=== PATIENT | female | born 1940 | race Caucasian/White ===

== ENCOUNTER → 2017-01-16 | Outpatient (REF) | payer MEDICARE ==
[2017-01-16 10:50] LABS: ALBUMIN 4.1 GM/DL (3.2-5.2); ALBUMIN/GLOBULIN RATIO 1.14 (1.00-1.93); BILIRUBIN,TOTAL 0.4 MG/DL (0.2-1.0); CREATININE FOR GFR 1.01 MG/DL (0.55-1.02); GLOMERULAR FILTRATION RATE 56.9 (>39); POTASSIUM SERUM 4.1 MEQ/L (3.5-5.1); TOTAL PROTEIN 7.7 GM/DL (6.4-8.2)
== END ==
LOC: M LABDRAW1 10:14
PROVIDERS: ATTEND Nurse Practitioner Adult Health
DX: I10 Essential (primary) hypertension (principal); E78.4 Other hyperlipidemia

== ENCOUNTER → 2017-01-24 | Outpatient (CLI) | payer MEDICARE ==
--- NOTE | 2017-01-24 10:15 | REPMRS ---
Patient History The patient states she had a clinical breast exam in Patient is postmenopausal. Family history of breast cancer in paternal aunt at age 50 or over, ovarian cancer in maternal grandmother at age 50 or over, breast cancer in maternal cousin under age 50, and ovarian cancer in maternal cousin under age 50. Digital Woman Screen Mammo: January 24, 2017 - Exam #: [id number] Bilateral CC and MLO view(s) were taken. Technologist: Krystal De Leon, Technologist Prior study comparison: January 27, 2016, digital woman screen mammo performed at [facility]. January 21, 2015, digital woman screen mammo performed at [facility]. January 20, 2014, digital woman screen mammo performed at [facility]. FINDINGS: There are scattered fibroglandular densities. There has been no change in the appearance of the mammogram from the prior studies. There is a mild amount of scattered fibroglandular density which is fairly symmetric. There is no interval development of dominant mass, architectural distortion, or clustered microcalcification suggestive of malignancy. ASSESSMENT: BI-RADS/ACR category 1 mammogram. Negative. Recommendation Routine screening mammogram in 1 year (for women over age 40). This mammogram was interpreted with the aid of an FDA-approved computer-aided dectection system. Electronically Signed By: Ryan Bailey MD 01/24/17 1015
== END ==
LOC: M WHC 07:57
PROVIDERS: ATTEND Nurse Practitioner Women's Health
DX: Z01.419 Encounter for gynecological examination (general) (routine) without abnormal findings (principal); Z12.31 Encounter for screening mammogram for malignant neoplasm of breast; Z78.0 Asymptomatic menopausal state; Z80.41 Family history of malignant neoplasm of ovary
CPT/HCPCS: G0101; G0202

== ENCOUNTER → 2017-02-21 | Outpatient (CLI) | payer MEDICARE ==
--- NOTE | 2017-02-21 14:16 | REP ---
Whole body radionuclide bone scan: The patient complains of low back pain right knee pain. The patient reportedly had an hemangioma questionably diagnosed in a lumbar spine vertebral body on a previous lumbar spine plain film study dated 01/16 2017. Upon review of this plain film study there is questionably an hemangioma in the L2 vertebral body. On the study today whole-body scanning is performed. Additionally, oblique views of the ribs and oblique views of the pelvis are performed in lateral views of the calvarium and knees are performed. There is no unusual uptake in the calvarium. There is a degenerative pattern of uptake in the shoulders. There is no unusual rib uptake. There is faintly visible uptake in two mid-thoracic vertebral bodies. Upon review of the PA and lateral plain film study of the chest dated 04/17/11, there is no midthoracic vertebral body compression deformity. There are no lytic, blastic or destructive changes in the mid thoracic vertebra. There is normal uptake in the lumbar spine. There is no increased lumbar vertebral body uptake particularly at L2. There is normal uptake in the pelvis and lower extremities. There is no unusual knee uptake. There is bilaterally symmetric uptake in the ankles which could be congenital variant or degenerative uptake. Impression: There is no unusual uptake in the lumbar spine. There is faintly visible uptake in two thoracic spine vertebral bodies. There is a degenerative pattern of uptake in the shoulders. There is bilaterally symmetric uptake in the ankles, congenital variant versus degenerative uptake. The study is performed with 21.3 mCi of technetium 99m labeled MDP. Signed by Denzel Simms MD 02/21/2017 02:07 P
== END ==
LOC: M RAD 09:54
PROVIDERS: ATTEND Orthopaedic Surgery
DX: R93.7 Abnormal findings on diagnostic imaging of other parts of musculoskeletal system (principal)
CPT/HCPCS: 78306; A9503

== ENCOUNTER → 2017-03-05 | Outpatient (REF) | payer MEDICARE ==
[2017-03-05 11:56] LABS: BLOOD UREA NITROGEN 24 MG/DL (7-18); CREATININE FOR GFR 0.94 MG/DL (0.55-1.02); GLOMERULAR FILTRATION RATE > 60.0 (>39)
== END ==
LOC: M LABDRAW1 11:17
PROVIDERS: ATTEND Orthopaedic Surgery
DX: D16.21 Benign neoplasm of long bones of right lower limb (principal)

== ENCOUNTER → 2017-08-12 | Outpatient (REF) | payer MEDICARE ==
[2017-08-12 10:22] LABS: MEAN CORPUSCULAR HEMOGLOBIN 29.6 pg (27.0-33.0); MEAN CORPUSCULAR HGB CONC 33.3 g/dl (32.0-36.5); MEAN CORPUSCULAR VOLUME 88.8 fl (80.0-96.0); RED CELL DISTRIBUTION WIDTH 13.7 % (11.5-14.5); WHITE BLOOD COUNT 5.4 K/mm3 (4.0-10.0)
[2017-08-12 10:52] LABS: ALBUMIN 3.7 GM/DL (3.2-5.2); ALBUMIN/GLOBULIN RATIO 1.06 (1.00-1.93); BILIRUBIN,TOTAL 0.3 MG/DL (0.2-1.0); CREATININE FOR GFR 0.99 MG/DL (0.55-1.02); FREE T4 1.12 NG/DL (0.76-1.46); GLOMERULAR FILTRATION RATE 58.2 (>39); POTASSIUM SERUM 4.1 MEQ/L (3.5-5.1); TOTAL PROTEIN 7.2 GM/DL (6.4-8.2)
== END ==
LOC: M LABDRAW1 09:52
PROVIDERS: ATTEND Nurse Practitioner Adult Health
DX: E55.9 Vitamin D deficiency, unspecified (principal); I10 Essential (primary) hypertension; K21.9 Gastro-esophageal reflux disease without esophagitis; J45.20 Mild intermittent asthma, uncomplicated; E66.09 Other obesity due to excess calories; E78.4 Other hyperlipidemia; D64.9 Anemia, unspecified; M54.30 Sciatica, unspecified side; D18.09 Hemangioma of other sites; Z12.11 Encounter for screening for malignant neoplasm of colon

== ENCOUNTER → 2017-12-11 | Outpatient (CLI) | payer MEDICARE ==
[2017-12-11 13:36] LABS: HEMATOCRIT 37.9 % (36.0-47.0); MEAN CORPUSCULAR HEMOGLOBIN 28.4 pg (27.0-33.0); MEAN CORPUSCULAR HGB CONC 31.7 g/dl (32.0-36.5); MEAN CORPUSCULAR VOLUME 89.8 fl (80.0-96.0); PLATELET COUNT, AUTOMATED 293 10^3/uL (150-450); RED BLOOD COUNT 4.22 10^6/uL (4.00-5.40); RED CELL DISTRIBUTION WIDTH 13.7 % (11.5-14.5); WHITE BLOOD COUNT 5.5 10^3/uL (4.0-10.0)
[2017-12-11 14:01] LABS: ALBUMIN/GLOBULIN RATIO 1.18 (1.00-1.93); ALKALINE PHOSPHATASE 88 U/L (45-117); ALT/SGPT 25 U/L (12-78); ANION GAP 9 MEQ/L (8-16); AST/SGOT 14 U/L (7-37); BILIRUBIN,TOTAL 0.5 MG/DL (0.2-1.0); BLOOD UREA NITROGEN 27 MG/DL (7-18); CALCIUM LEVEL 9.3 MG/DL (8.8-10.2); CARBON DIOXIDE LEVEL 26 MEQ/L (21-32); CHLORIDE LEVEL 107 MEQ/L (98-107); CREATININE FOR GFR 0.97 MG/DL (0.55-1.02); GLOMERULAR FILTRATION RATE 59.4 (>39); GLUCOSE, FASTING 87 MG/DL (83-110); POTASSIUM SERUM 4.4 MEQ/L (3.5-5.1); SODIUM LEVEL 142 MEQ/L (136-145); TOTAL PROTEIN 7.4 GM/DL (6.4-8.2)
== END ==
LOC: M WUC 08:46
DX: R19.8 Other specified symptoms and signs involving the digestive system and abdomen (principal)
CPT/HCPCS: 80053

== ENCOUNTER → 2017-12-25 | Outpatient (CLI) | payer MEDICARE ==
[~2017-12-25] MED LIST: GASTROGRAFIN SOLUTION 30ML (Q9963) As Ordered
== END ==
LOC: M RAD 11:30
DX: R19.8 Other specified symptoms and signs involving the digestive system and abdomen (principal); R19.4 Change in bowel habit
CPT/HCPCS: Q9963

== ENCOUNTER → 2018-01-27 | Outpatient (CLI) | payer MEDICARE | LOC: M WHC 07:47 | DX: Z01.419 Encounter for gynecological examination (general) (routine) without abnormal findings (principal); Z12.31 Encounter for screening mammogram for malignant neoplasm of breast (principal); Z78.0 Asymptomatic menopausal state; Z80.41 Family history of malignant neoplasm of ovary | CPT/HCPCS: 77067 ==

== ENCOUNTER 2018-08-01 23:40 | Emergency (ER) | payer MEDICARE ==
[2018-08-02] MEDS: BACTRIM 160MG/800MG DS TAB PO (01:15)
[2018-08-02] MEDS: ADACEL/BOOSTRIX VACCINE (DIPHTH/PERTUSS/ACELL/TETANUS)0.5ML SYR (90715) IM (01:15)
== END 2018-08-02 01:27 | disposition home or self-care (01) ==
LOC: M ED 23:40
DX: L03.114 Cellulitis of left upper limb (principal); T63.451A Toxic effect of venom of hornets, accidental (unintentional), initial encounter; Y92.89 Other specified places as the place of occurrence of the external cause; I10 Essential (primary) hypertension; E78.5 Hyperlipidemia, unspecified; J45.909 Unspecified asthma, uncomplicated; K21.9 Gastro-esophageal reflux disease without esophagitis; Z88.0 Allergy status to penicillin; Z79.899 Other long term (current) drug therapy; Z79.82 Long term (current) use of aspirin; Z79.51 Long term (current) use of inhaled steroids
CPT/HCPCS: 90715

== ENCOUNTER → 2019-05-01 | Outpatient (CLI) | payer MEDICARE ==
[~2019-05-01] MED LIST changes: +AMLO10TA5 PO; +ASPI81TA26 PO; +ATEN50TA2 PO; +BACT800T5 PO; +CALC600T57 PO; +CHEL50TA PO; +FISH100049 PO; -GASTROGRAFIN SOLUTION 30ML (Q9963) As Ordered; +GLUC15009 PO; +LISI-538 PO; +MULT1TAB18 PO; +NATU400T PO; +OMEP20CA3 PO; +SIMV40TA2 PO; +SYMB80INH INH; +VITA-121 PO
--- NOTE | 2019-05-01 10:30 | REPMRS ---
Patient History The patient states she had a clinical breast exam in 04/2019. Patient is postmenopausal. Family history of breast cancer under age 50 in paternal aunt, ovarian cancer at age 50 or over in maternal grandmother, breast cancer under age 50 in maternal cousin, ovarian cancer under age 50 in maternal cousin, colorectal cancer at age 50 or over in sister. No Hormone Replacement Therapy 3D TOMOSYNTHESIS WAS PERFORMED. Digital Woman Screen Mammo: May 01, 2019 - Exam #: [id number] Bilateral CC and MLO view(s) were taken. Technologist: Florence Vo, Technologist Prior study comparison: January 27, 2018, digital woman screen mammo performed at [facility]. January 24, 2017, digital woman screen mammo performed at [facility]. FINDINGS: The breast tissue is heterogeneously dense. This may lower the sensitivity of mammography. There has been no change in the appearance of the mammogram from the prior studies. There is a moderate amount of residual fibroglandular tissue which is fairly symmetric. There is no interval development of dominant mass, areas of architectural distortion, or clustered microcalcification typical of malignancy. Assessment: BI-RADS/ACR category 1 mammogram. Negative Mammogram. Recommendation Routine screening mammogram in 1 year (for women over age 40). This mammogram was interpreted with the aid of an FDA-approved computer-aided dectection system. Electronically Signed By: Denzel Novoa MD 05/01/19 [id number]
== END ==
LOC: M WHC 08:52
PROVIDERS: ATTEND Nurse Practitioner Women's Health
DX: Z12.31 Encounter for screening mammogram for malignant neoplasm of breast (principal); Z78.0 Asymptomatic menopausal state; Z80.0 Family history of malignant neoplasm of digestive organs
CPT/HCPCS: 77063; 77067; G0463

== ENCOUNTER → 2019-08-08 | Outpatient (CLI) | payer MEDICARE ==
[~2019-08-08] MED LIST changes: -OMEP20CA3 PO; +OMEP20CA4 PO
[2019-08-08 13:09] LABS: HEMATOCRIT 38.7 % (36.0-47.0); HEMOGLOBIN 12.4 g/dl (12.0-15.5); MEAN CORPUSCULAR HEMOGLOBIN 28.4 pg (27.0-33.0); MEAN CORPUSCULAR VOLUME 88.8 fl (80.0-96.0); PLATELET COUNT, AUTOMATED 223 10^3/uL (150-450); RED BLOOD COUNT 4.36 10^6/uL (4.00-5.40); WHITE BLOOD COUNT 6.1 10^3/uL (4.0-10.0)
[2019-08-08 13:35] LABS: ALBUMIN 4.1 GM/DL (3.2-5.2); BILIRUBIN,TOTAL 0.5 MG/DL (0.2-1.0); CALCIUM LEVEL 9.6 MG/DL (8.8-10.2); CHOLESTEROL RISK RATIO 3.394 (<5); CREATININE FOR GFR 1.21 MG/DL (0.55-1.30); GLOMERULAR FILTRATION RATE 45.9 (>39); POTASSIUM SERUM 4.2 MEQ/L (3.5-5.1); THYROID STIMULATING HORMONE 1.07 uIU/ML (0.358-3.740); TOTAL PROTEIN 7.3 GM/DL (6.4-8.2)
[2019-08-10 09:48] LABS: TOTAL 25(OH) VITAMIN D 34.1 NG/ML (30.0-100.0)
== END ==
LOC: M WUC 10:02
PROVIDERS: ATTEND Nurse Practitioner Adult Health
DX: D64.9 Anemia, unspecified (principal); E55.9 Vitamin D deficiency, unspecified; E78.49 Other hyperlipidemia; I10 Essential (primary) hypertension; E66.09 Other obesity due to excess calories

== ENCOUNTER → 2020-05-31 | Outpatient (CLI) | payer MEDICARE ==
[~2020-05-31] MED LIST changes: +OMEP1CAP73 PO; -OMEP20CA4 PO; -SIMV40TA2 PO; +SIMV40TA20 PO
--- NOTE | 2020-05-31 16:36 | REPMRS ---
Patient History The patient states she had a clinical breast exam in May 2020. Family history of breast cancer under age 50 in paternal aunt, ovarian cancer at age 50 or over in maternal grandmother, breast cancer under age 50 in maternal cousin, ovarian cancer under age 50 in maternal cousin, colorectal cancer at age 50 or over in sister. No Hormone Replacement Therapy 3D TOMOSYNTHESIS WAS PERFORMED. The [facility] lifetime risk for breast cancer is 2.8%. VOLPARA DENSITY B. Digital Woman Screen Mammo: May 31, 2020 - Exam #: [id number] Bilateral CC and MLO view(s) were taken. Technologist: Stacey Iglesias, Technologist Prior study comparison: May 01, 2019, bilateral digital woman screen mammo performed at [facility]. January 27, 2018, digital woman screen mammo performed at [facility]. FINDINGS: There are scattered fibroglandular densities. There has been no change in the appearance of the mammogram from the prior studies. There is a mild amount of residual fibroglandular tissue which is fairly symmetric. There is no interval development of dominant mass, architectural distortion, or clustered microcalcification suggestive of malignancy. Assessment: BI-RADS/ACR category 1 mammogram. Negative Mammogram. Recommendation Routine screening mammogram in 1 year (for women over age 40). This mammogram was interpreted with the aid of an FDA-approved computer-aided dectection system. Electronically Signed By: Denzel Novoa MD 05/31/20 0704
== END ==
LOC: M WHC 14:30
PROVIDERS: ATTEND Nurse Practitioner Women's Health
DX: Z12.31 Encounter for screening mammogram for malignant neoplasm of breast (principal); Z80.0 Family history of malignant neoplasm of digestive organs

== ENCOUNTER → 2021-01-11 | Outpatient (CLI) | payer MEDICARE ==
[~2021-01-11] MED LIST changes: -AMLO10TA5 PO; +AMLO1TAB25 PO; -LISI-538 PO; +LISI20TA33 PO
--- NOTE | 2021-01-11 10:39 | REP ---
INDICATION: MODERATE PERSISTANT ASTHMA COMPARISON: None. TECHNIQUE: PA and lateral. FINDINGS: The mediastinum and cardiac silhouette are normal. The lung scales are clear and without acute consolidation, effusion, or pneumothorax. The skeletal structures are intact and normal. IMPRESSION: No acute cardiopulmonary process. Consider chest CT if the patient remains symptomatic. <Electronically signed by Jonatan Fisher > 01/11/21 [id number]
== END ==
LOC: M WUC 10:22
PROVIDERS: ATTEND Internal Medicine Pulmonary Disease
DX: J45.40 Moderate persistent asthma, uncomplicated (principal)

== ENCOUNTER → 2021-03-17 | Outpatient (CLI) | payer MEDICARE ==
--- NOTE | 2021-03-17 08:56 | REP ---
INDICATION: INJURY/PAIN COMPARISON: None. TECHNIQUE: Internal rotation, external rotation, and Y view. FINDINGS: Generalized age-related osteopenia and mild degenerative changes are appreciated. Findings include subtle cortical irregularity at the acromioclavicular joint and very mild blunting to the calcified glenoid rim. Subacromial space is normal. No periarticular calcifications or loose bodies. No acute fracture or dislocation. IMPRESSION: Generalized osteopenia and mild age-related changes. <Electronically signed by Jonatan Fisher > 03/17/21 0833
== END ==
LOC: M WUC 08:36
PROVIDERS: ATTEND Nurse Practitioner Adult Health
DX: M85.822 Other specified disorders of bone density and structure, left upper arm (principal)

== ENCOUNTER → 2021-06-21 | Outpatient (CLI) | payer MEDICARE ==
--- NOTE | 2021-06-21 16:13 | REPMRS ---
Patient History The patient states she had a clinical breast exam in May 2021. Family history of breast cancer under age 50 in paternal aunt, ovarian cancer at age 50 or over in maternal grandmother, breast cancer under age 50 in maternal cousin, ovarian cancer under age 50 in maternal cousin, colorectal cancer at age 50 or over in sister. No Hormone Replacement Therapy Patient states no breast complaints today. Patient has signed MRS History Sheet.Patient states no breast complaints today. Patient has signed MRS History Sheet. Digital Woman Screen Mammo: June 21, 2021 - Exam #: [id number] Bilateral CC and MLO view(s) were taken. Technologist: Florence Vo, Technologist Prior study comparison: May 31, 2020, bilateral digital woman screen mammo performed at [facility]. May 01, 2019, bilateral digital woman screen mammo performed at [facility]. FINDINGS: There are scattered fibroglandular densities. Screening. Digital screening (2D) mammography was performed bilaterally in the CC and MLO projections. Additionally, breast tomosynthesis (3D mammography) was performed bilaterally in the CC and MLO projections. Todays exam was compared to the prior exam/exams. By history, the patient has no complaints of a palpable breast abnormality or other significant breast complaints. The breasts are unchanged in size and shape. There are no lorna-soft tissue densities or spiculated masses. There is no internal architectural distortion. Once again, stable benign appearing calcifications are seen.There are no suspicious lorna-calcific clusters. Skin thickening or nipple retraction is not present. IMPRESSION: BI-RADS Category 2- Benign Findings. There is no evidence of malignant alteration of the breasts. Followup examination recommended in one year. The Volpara volumetric breast density category is B, there are scattered areas of fibroglandular densities. This mammogram was read with the assistance of [employer],an FDA approved computer aided detection system for mammography. The lifetime Tyrer-Cuzick score is 2.4 % Negative x-ray reports should not delay surgical consultation if a dominant or clinically suspicious mass is present. Not all breast cancers can be identified by mammography. Therefore, we recommend that you continue to perform regular breast self-examination and physical examination and then promptly contact your physician of any concerns or changes. Adenosis and dense breasts may obscure an underlying neoplasm. Assessment: BI-RADS/ACR category 2 mammogram. Benign Findings. Recommendation Routine screening mammogram of both breasts in 1 year. Electronically Signed By: Jason Hernandez DO 06/21/21 [id number]
== END ==
LOC: M WHC 14:22
PROVIDERS: ATTEND Nurse Practitioner Women's Health
DX: Z12.31 Encounter for screening mammogram for malignant neoplasm of breast (principal); Z80.3 Family history of malignant neoplasm of breast

== ENCOUNTER → 2022-08-31 | Outpatient (CLI) | payer MEDICARE | LOC: M WHC 14:19 | PROVIDERS: ATTEND Nurse Practitioner Family | DX: Z12.31 Encounter for screening mammogram for malignant neoplasm of breast (principal) ==

== ENCOUNTER → 2023-09-06 | Outpatient (CLI) | payer MEDICARE | LOC: M WHC 13:40 | PROVIDERS: ATTEND Nurse Practitioner Family | DX: Z12.31 Encounter for screening mammogram for malignant neoplasm of breast (principal) ==

== ENCOUNTER → 2024-09-08 | Outpatient (CLI) | payer MEDICARE | LOC: M WHC 08:23 | PROVIDERS: ATTEND Nurse Practitioner Family | DX: Z12.31 Encounter for screening mammogram for malignant neoplasm of breast (principal) ==

== ENCOUNTER → 2025-09-09 | Outpatient (CLI) | payer MEDICARE | LOC: M WHC 10:21 | PROVIDERS: ATTEND Physician Assistant | DX: Z12.31 Encounter for screening mammogram for malignant neoplasm of breast (principal); R92.323 Mammographic fibroglandular density, bilateral breasts ==